=== PATIENT | female | born 1975 | race Caucasian/White ===

== ENCOUNTER 2022-08-06 08:30 | Day surgery (SDC) | payer OTHER ==
[~2022-08-06 08:30] MED LIST: Lactated Ringers 1,000 ML IV SCH; Sodium Chloride 0.9% 10 ML Syringe FLUSH PRN
[2022-08-06] MEDS ORDERED: Propofol 200 MG/20 ML SDV IV ONE (08:31)
[2022-08-06] MEDS ORDERED: Lidocaine 2% 5 ML SDV IV ONE (08:31)
[2022-08-06] MEDS ORDERED: Simethicone Drops 40 MG/0.6 ML 30 ML Bottle ONE (09:58)
== END 2022-08-06 11:21 | disposition home or self-care (01) ==
LOC: FB.SDS 08:30
PROVIDERS: ATTEND Surgery
DX: Z12.11 Encounter for screening for malignant neoplasm of colon (principal); Z79.899 Other long term (current) drug therapy; Z90.49 Acquired absence of other specified parts of digestive tract
CPT/HCPCS: 00811; 45378; 81025; A9270; J2704; J7120

== ENCOUNTER 2023-08-02 18:27 | Emergency (ER) | payer OTHER ==
[2023-08-02 19:17] LABS: BASOPHILS ABSOLUTE AUTO 0.1 x10-3/uL (0.0-0.1); BASOPHILS PERCENT AUTO 0.5 % (0.2-1.5); EOSINOPHILS PERCENT AUTO 0.2 % (0.6-8.1); HEMATOCRIT 40.5 % (34.2-48.2); HEMOGLOBIN 13.4 g/dL (11.4-15.5); MEAN CORPUSCULAR HEMOGLOBIN 29.3 pg (23.9-33.9); MEAN CORPUSCULAR HGB CONC 33.2 g/dL (31.9-34.8); MEAN CORPUSCULAR VOLUME 88.4 fL (76.7-100.5); MEAN PLATELET VOLUME 7.4 fL (7.1-12.4); MONOCYTES ABSOLUTE AUTO 0.6 x10-3/uL (0.3-1.0); MONOCYTES PERCENT AUTO 5.9 % (4.4-15.7); NEUTROPHILS ABSOLUTE AUTO 7.3 x10-3/uL (1.5-6.3); NEUTROPHILS PERCENT AUTO 66.4 % (30.8-76.2); PLATELET COUNT,PLT 285 x10(3)uL (151-488); RED BLOOD CELL COUNT 4.58 x10(6)uL (3.60-5.20); RED CELL DISTRIBUTION WIDTH 13.2 % (12.3-16.5)
[2023-08-02 19:24] LABS: BLOOD UREA NITROGEN,BUN 19 mg/dL (7-18); CALCIUM 9.9 mg/dL (8.6-10.2); CARBON DIOXIDE,CO2 31 mmol/L (21-32); CHLORIDE,CL 104 mmol/L (100-110); EST CRCL DRUG DOSING (CG) 60.56 mL/min; ESTIMATED GFR 69 mL/min (>60); GLUCOSE RANDOM 114 mg/dL (80-116); POTASSIUM,K 3.9 mmol/L (3.5-5.3); SODIUM,NA 143 mmol/L (135-145)
[2023-08-02] MEDS: Sodium Chloride 0.9% 1,000 ML IV ONE (19:29)
[2023-08-02] MEDS: Metoclopramide 10 MG/2 ML SDV IVPUSH ONE (19:29)
[2023-08-02 19:30] LABS: A/G RATIO 1.3; ALANINE AMINOTRANSFERASE,ALT 36 U/L (12-36); ALBUMIN 3.9 g/dL (3.5-5.2); ALKALINE PHOSPHATASE 86 IU/L (56-112); ASPARTATE AMNIOTRANSFERASE,AST 18 IU/L (5-25); BILIRUBIN TOTAL 1.3 mg/dL (0.1-1.3)
[2023-08-02] MEDS: Ketorolac 30 MG/ML SDV IVPUSH ONE (19:30)
[2023-08-02 19:35] LABS: BILIRUBIN,URINE NEGATIVE (NEGATIVE); GLUCOSE,URINE NORMAL (NORMAL); KETONES,URINE NEGATIVE (NEGATIVE); LEUKOCYTE ESTERASE,URINE NEGATIVE (NEGATIVE); NITRITE,URINE NEGATIVE (NEGATIVE); OCCULT BLOOD,URINE NEGATIVE (NEGATIVE); PROTEIN,URINE NEGATIVE (NEGATIVE); UROBILINOGEN,URINE NORMAL (NEGATIVE)
[2023-08-02 19:36] LABS: LIPASE 22 U/L (16-77)
[2023-08-02 19:41] LABS: APPEARANCE,URINE SLIGHTLY CLOUDY (CLEAR); COLOR,URINE YELLOW (YELLOW); RBC,URINE 0-5 (0-5)
[2023-08-02 19:41] LABS: C-REACTIVE PROTEIN < 0.50 mg/dL (<0.50); TROPONIN I < 4.0 pg/mL (4.0-60.3)
[2023-08-02 19:42] LABS: AMORPHOUS SEDIMENT,URINE MODERATE; BACTERIA,URINE OCCASIONAL (NS); SQUAMOUS EPITHELIAL CELLS,UR OCCASIONAL (NS,R,O); WBC,URINE 0-5 (0-5)
[2023-08-02] MEDS: Iopamidol 755 Mg/ML 100 ML Bottle IV SCH (20:31)
[2023-08-02] MEDS ORDERED: Piperacillin/Tazobactam 3.375 GM in Sodium Chloride 0.9% 50 ML IV SCH (23:30)
[2023-08-02] MEDS: Morphine 4 MG/ML VIAL IVPUSH ONE (23:43)
[2023-08-02] MEDS: Piperacillin/Tazobactam 3.375 GM in Sodium Chloride 0.9% 50 ML IV ONE (23:43)
[2023-08-03] MEDS ORDERED: Acetaminophen 325 MG Tab PO ONE (00:56)
[2023-08-03] MEDS: Acetaminophen 650 MG Supp RECTAL ONE (01:01)
[2023-08-03] MEDS: Acetaminophen 500 MG Tab PO ONE (01:04)
[2023-08-03] MEDS ORDERED: Piperacillin/Tazobactam 4.5 GM in Sodium Chloride 0.9% 100 ML IV SCH (03:30)
== END 2023-08-03 01:10 ==
LOC: FB.ED 18:27
DX: K35.80 Unspecified acute appendicitis (principal); Z79.899 Other long term (current) drug therapy
CPT/HCPCS: 74177; 80053; 81001; 81025; 83690; 84484; 85025; 86140; 96361; 96365; 96375; 99285; A9270; J1885; J2270; J2543; J2765; J3490; J7030; Q9967